=== PATIENT | female | born 1980 | race Caucasian/White ===

== ENCOUNTER 2019-10-29 18:40 | Emergency (ER) | payer OTHER ==
[2019-10-30 15:22] LABS: SARS-CoV-2 MS2 Positive; SARS-CoV-2 N Gene Negative; SARS-CoV-2 S Gene Negative; SARS-CoV-2 orf1ab Negative
== END 2019-10-29 19:34 | disposition home or self-care (01) ==
LOC: ERS 18:40
DX: Z20.828 Contact with and (suspected) exposure to other viral communicable diseases (principal)
CPT/HCPCS: 87635; 99283; U0003

== ENCOUNTER 2019-11-26 21:22 | Emergency (ER) | payer SELFPAY ==
[~2019-11-26 21:22] MED LIST: Iopamidol 370 76% 100 ML VIAL ONE
[2019-11-26] MEDS ORDERED: Morphine 4 MG/ML VIAL ONE (22:07)
[2019-11-26] MEDS ORDERED: Ondansetron PF 4 MG/2 ML Vial ONE (22:08)
[2019-11-26 23:00] LABS: #Eosinphils 0.3 thou/uL (0.0-0.7); #Lymphocytes 2.4 thou/uL (1.20-3.40); #Monocytes 0.3 thou/uL (0.11-0.59); #Neutrophils 4.4 thou/uL (1.40-6.50); %Basophils 0.3 % (0.0-1.0); %Eosinophils 3.6 % (0.0-10.0); %Lymphocytes 32.6 % (21.0-51.0); %Monocytes 4.3 % (0.0-10.0); %Neutrophils 59.1 % (42.0-75.0); Hemoglobin 14.1 g/dL (12.0-16.0); Mean Corpuscular HGB CONC 33.6 g/dL (32.0-36.0); Mean Corpuscular Hemoglobin 29.6 pg (27.0-31.0); Mean Corpuscular Volume 88.1 fL (78.0-98.0); Mean Platelet Volume 8.9 fL (7.4-10.4); Platelet Count 187 thou/uL (130-400); Red Blood Cell (RBC) Count 4.77 mill/uL (4.20-5.40); White Blood Cell (WBC) Count 7.5 thou/uL (4.8-10.8)
[2019-11-26 23:00] LABS: Pregnancy Test - Urine (BHCG) Negative (Negative); Pregu Control Background? CLEAR/WHITE (CLR/WHITE); Pregu Control Bar Appear? YES (CONTROL BAR); Specific Gravity 1.023 (1.002-1.036)
[2019-11-26 23:01] LABS: Bilirubin Negative (Negative); Blood, Urine 1+ (Negative); Clarity Clear (Clear); Glucose, Urine (Dipstick) Normal (Negative); Ketone, Urine Negative (Negative); Leukocyte 25 Leu/uL (Negative); Nitrite Negative (Negative); Protein, Urine (Dipstick) Negative (Neg-Trace); RBC/HPF 0-3 HPF (0-3); Specific Gravity, Urine 1.023 (1.002-1.036); Urobilinogen Normal mg/dL (Less than 2)
[2019-11-26 23:06] LABS: ALT (SGPT) 43 U/L (8-55); AST (SGOT) 55 U/L (5-34); Albumin 4.2 g/dL (3.5-5.0); Alkaline Phosphatase 121 U/L (40-110); Anion Gap 15 mmol/L (10-20); BUN (Urea Nitrogen) 14 mg/dL (7.0-18.7); Bilirubin, Total 0.3 mg/dL (0.2-1.2); Calc. Creatinine Clearance 0 mL/min (70-130); Calcium 9.6 mg/dL (7.8-10.44); Carbon Dioxide 23 mmol/L (22-29); Chloride 99 mmol/L (98-107); Estimated GFR-MDRD 79; Globulin 4.1 g/dL (2.4-3.5); Glucose 168 mg/dL (70-105); Lipase 37 U/L (8-78); Protein, Total 8.3 g/dL (6.0-8.3); Sodium 132 mmol/L (136-145)
[2019-11-26 23:16] LABS: Bacteria/HPF 2+ HPF (None Seen)
[2019-11-26] MEDS ORDERED: methylPREDNISolone Sod Succ/PF 125 MG/2 ML VIAL ONE (23:24)
[2019-11-26] MEDS ORDERED: diphenhydrAMINE 50 MG/ML VIAL ONE (23:24)
[2019-11-26] MEDS ORDERED: Famotidine/PF 20 mg/2ml Vial ONE (23:24)
--- NOTE | 2019-11-26 23:33 | CT ---
EXAM: CT ABDOMEN AND PELVIS HISTORY: Abdominal pain. COMPARISON: CT angiogram abdomen and pelvis 05/23/2019 Procedure: Multiple contiguous axial images were obtained and a CT of the abdomen and pelvis with IV contrast. C oronal reformats were performed. FINDINGS: Lower Chest: within normal limits. Vessels: Normal caliber aorta. No periaortic fat stranding Heart: Normal heart size Abdomen: Portal vein:Patent Gallbladder: Surgically absent Liver: Hepatomegaly. Hypoattenuation compatible with hepatic steatosis. Pancreas: within normal limits. Spleen: within normal limits. Adrenals: within normal limits. Kidneys: Symmetric enhancement of the kidneys. Bilaterally no obstructive uropathy. Previously noted calculus in the left lower pole intrarenal collecting system is difficult to appreciate on the axial images but does appear to be present on the coronal images, measuring approximately 0.5 cm. Pre viously noted punctate calculus in the lower pole the right intrarenal collecting system is unchanged. Peritoneum: No ascites or free air, no fluid collection. Bowel: Limited evaluation due to the lack of oral contrast administration. No evidence of bowel obstr uction. Ileocecal junction is unremarkable. Normal caliber appendix. Scattered fecal material in a nondistended, nondilated colon. Mesentery and Retroperitoneum: No enlarged mesenteric or retroperitoneal lymph nodes. Abdominal Wall: Small umbilical hernia containing mesenteric fat Pelvis: Reproductive Organs: Reproductive organs are unremarkable. Pelvis: No mass, lymphadenopathy, free air or free fluid. Bladder: Decompressed, limiting evaluation Bones: Stable spondylolysis at L5. IMPRESSION: 1. Hepatic steatosis. Hepatomegaly. 2. No acute abnormality in the abdomen or pelvis. 3. Normal caliber appendix. 4. Bilateral nonobstructing intrarenal calculi.
== END 2019-11-27 00:26 | disposition home or self-care (01) ==
LOC: ERS 21:22
DX: R10.11 Right upper quadrant pain (principal); M54.5 Low back pain; E11.9 Type 2 diabetes mellitus without complications; J44.9 Chronic obstructive pulmonary disease, unspecified; Z79.899 Other long term (current) drug therapy; Z79.4 Long term (current) use of insulin
CPT/HCPCS: 36415; 74177; 80053; 81003; 81015; 81025; 83690; 85025; 96361; 96374; 96375; J1200; J2270; J2405; J2930; Q9967; S0028

== ENCOUNTER 2019-12-24 03:21 | Emergency (ER) | payer SELFPAY | END 2019-12-24 03:55 | disposition home or self-care (01) | LOC: ERS 03:21 | DX: K02.9 Dental caries, unspecified (principal); E11.9 Type 2 diabetes mellitus without complications; J44.9 Chronic obstructive pulmonary disease, unspecified; Z79.4 Long term (current) use of insulin; Z79.899 Other long term (current) drug therapy | CPT/HCPCS: 99283 ==